=== PATIENT | female | born 1960 | race Caucasian/White ===

== ENCOUNTER → 2017-08-26 | Outpatient (CLI) | payer MEDICARE, OTHER ==
--- NOTE | 2017-08-26 16:06 | US ---
EXAMINATION TYPE: US venous doppler duplex LE RT DATE OF EXAM: 08/26/2017 3:56 PM COMPARISON: NONE CLINICAL HISTORY: Rt Lower Limb Pain M79.604. SIDE PERFORMED: Right TECHNIQUE: The lower extremity deep venous system is examined utilizing real time linear array sonog aruna with graded compression, doppler sonography and color-flow sonography. VESSELS IMAGED: External Iliac Vein (EIV) Common Femoral Vein Deep Femoral Vein Greater Saphenous Vein * Femoral Vein Popliteal Vein Small Saphenous Vein * Proximal Calf Veins (* superficial vessels) Right Leg: Negative for DVT IMPRESSION: 1. No diagnostic evidence of DVT.
== END ==
LOC: RADUSWWP 15:19
PROVIDERS: ATTEND Family Medicine
DX: M79.604 Pain in right leg (principal)

== ENCOUNTER → 2020-03-12 | Outpatient (CLI) | payer MEDICARE, OTHER ==
--- NOTE | 2020-03-12 11:22 | US ---
EXAMINATION TYPE: US pelvic complete DATE OF EXAM: 03/12/2020 COMPARISON: NONE CLINICAL HISTORY: R10.2 pelvic pain. Right pelvic pain x couple months, bloating, post menopausal, gr avida 7, para 4, miscarriage 3, history of uterine CA, history of c-sections and tubal ligation. TECHNIQUE: . Transabdominal sonographic images of the pelvis were acquired. Transvaginal sonographi c images were medically necessary to better assess the following anatomy: endometrium and ovaries Date of LMP: 2008 EXAM MEASUREMENTS: Uterus: 6.2 x 3.6 x 4.2 cm Endometrial Stripe: 0.4 cm Right Ovary: not seen Left Ovary: not seen 1. Uterus: anteverted, heterogeneous 2. Endometrium: wnl 3. Right Ovary: not seen due to overlying bowel 4. Left Ovary: not seen due to overlying bowel 5. Bilateral Adnexa: wnl 6. Posterior cul-de-sac: wnl IMPRESSION: No concerning adnexal masses. Uterus felt within normal limits seen best on transvaginal imaging.
== END | disposition home or self-care (01) ==
LOC: RADUSWWP 10:42
PROVIDERS: ATTEND Family Medicine
DX: R10.2 Pelvic and perineal pain (principal)
CPT/HCPCS: 76830; 76856

== ENCOUNTER → 2020-06-04 | Outpatient (CLI) | payer MEDICARE, OTHER ==
[2020-06-04 11:37] LABS: African American GFR (CKD) >90 (>60 ml/min/1.73 sqM); Blood Urea Nitrogen 12 mg/dL (7-17); Non-African American GFR(CKD) >90 (>60 ml/min/1.73 sqM)
--- NOTE | 2020-06-04 14:27 | CT ---
EXAMINATION TYPE: CT ChestAbdPelvis w con DATE OF EXAM: 06/04/2020 COMPARISON: Limited abdominal ultrasound 02/19/2010. Pelvic ultrasound 03/12/2020. HISTORY: Lung nodule and Right sided Abdominal pain CT DLP: 1246 mGycm Automated exposure control for dose reduction was used. CONTRAST: CT scan of the chest, abdomen and pelvis is performed with Oral Contrast and with IV Contrast, patien t injected with 100 mL of Isovue 300. FINDINGS: LUNGS: The lungs are grossly clear, there is no concerning parenchymal mass or nodule identified. Mil d biapical pleural scarring. There is no pleural effusion or pneumothorax seen. The tracheobronchia l tree is patent. MEDIASTINUM: There are no greater than 1 cm hilar or mediastinal lymph nodes. Calcific coronary arter y disease. No pericardial effusion is seen. Cardiac size normal. No thoracic aortic aneurysm. OTHER: No additional significant abnormality is seen. LIVER/GB: Scattered hepatic cysts and too small to characterize hypodense lesions. There is hypodensi ty adjacent to the central hilum measuring approximately 3.4 x 1.3 x 2.6 cm. No evidence of biliary d uctal dilatation. Gallbladder normal. PANCREAS: No main pancreatic ductal dilatation. SPLEEN: Normal. ADRENALS: Normal. KIDNEYS: Normal. BOWEL: Normal. PELVIC: Uterus and adnexa normal. Underdistended urinary bladder. LYMPH NODES: No lymphadenopathy. VASCULATURE: No abdominal aortic aneurysm. Calcified and noncalcified atherosclerotic disease. PERITONEUM: Normal. OSSEOUS STRUCTURES: No acute osseous anomaly. IMPRESSION: 1. Hepatic 3.4 cm hypodense area in the region of the hilum/gallbladder fossa. Area was seen on 2009 ultrasound comparison and most likely represents unchanged focal fatty infiltration. 2. No acute thoracic or abdominopelvic findings to explain patient's abdominal pain.
== END | disposition home or self-care (01) ==
LOC: RADCTMAIN 10:52
PROVIDERS: ATTEND Family Medicine
DX: R91.1 Solitary pulmonary nodule (principal); R10.31 Right lower quadrant pain; K76.89 Other specified diseases of liver
CPT/HCPCS: 82565; 84520; 71260; 74177; 36415; Q9967

== ENCOUNTER → 2022-05-11 | Outpatient (CLI) | payer MEDICARE, OTHER ==
[2022-05-11 10:46] LABS: Basophils # (A) 0.06 X 10*3/uL (0.00-0.10); Eosinophils # (A) 0.16 X 10*3/uL (0.04-0.35); Eosinophils % (A) 2.8 %; HCT 39.7 % (37.2-46.3); HGB 12.1 g/dL (12.0-15.0); Immature Grans, Automated 0.2 %; Lymphocytes # (A) 1.89 X 10*3/uL (0.90-5.00); Lymphocytes % (A) 32.9 %; MCH 26.9 pg (27.0-32.0); MCHC 30.5 g/dL (32.0-37.0); MCV 88.2 fL (80.0-97.0); Mean Platelet Volume 10.3 fL (9.5-12.2); Monocytes # (A) 0.73 X 10*3/uL (0.20-1.00); Monocytes % (A) 12.7 %; NRBC Per 100 WBC 0 /100 WBCS (0.0-0.0); Neutrophils # (A) 2.89 X 10*3/uL (1.80-7.70); Neutrophils % (A) 50.4 %; Platelet Count 344 X 10*3/uL (140-440); RDW 13.3 % (11.5-14.5); WBC 5.74 X 10*3/uL (4.50-10.00)
[2022-05-11 10:51] LABS: Anion Gap 10.7 mmol/L (10.00-18.00); Carbon Dioxide 29.3 mmol/L (20.0-27.5); Potassium 4.6 mmol/L (3.5-5.5)
== END | disposition home or self-care (01) ==
LOC: LABPAT 07:57
PROVIDERS: ATTEND Orthopaedic Surgery
DX: Z01.812 Encounter for preprocedural laboratory examination (principal); M75.42 Impingement syndrome of left shoulder
CPT/HCPCS: 80051; 85025; 93005

== ENCOUNTER 2022-05-26 08:43 | Day surgery (SDC) | payer MEDICARE, OTHER ==
--- NOTE | 2022-05-25 14:14 | HP ---
HISTORY AND PHYSICAL REASON FOR ADMISSION: Surgery 05/26/2022 HISTORY OF PRESENT ILLNESS: Cristina Hayes is a 61-year-old patient seen with progressive left shoulder pain. We discussed options for treatment. She elected to proceed with left shoulder arthroscopy. Consent obtained. PAST MEDICAL HISTORY: Past medical history is [id number] diabetes. PAST SURGICAL HISTORY: Appendectomy, knee arthroscopy, section. MEDICATIONS: Metformin, Glimepiride. ALLERGIES: CODEINE. SOCIAL HISTORY: She denies tobacco use. PHYSICAL EVALUATION OF THE LEFT SHOULDER: Flexion is 90 degrees, abduction 70 degrees. External rotation is 40 degrees with pain and weakness. Tenderness along the anterolateral acromion rotator cuff insertion. Impingement positive 70 degrees. Cross-body adduction sign is positive. Drop-arm sign is positive. Distal neurovascular exam is intact. RADIOGRAPHS: Left shoulder radiographs revealed type 2 acromion, acromioclavicular joint osteoarthritis. MRI left shoulder partial rotator cuff tendon tear. IMPRESSION: 1. Left shoulder impingement with partial rotator cuff tear. 2. Left shoulder acromioclavicular joint osteoarthritis. 3. [id number] diabetes. PLAN: Left shoulder arthroscopy, subacromial decompression, possible arthroscopic rotator cuff repair, Corin procedure and debridement. Surgery 05/26/2022. MMODL / IJN: [id number] /
[~2022-05-26 08:43] MED LIST: DEXAMETHASONE SOD PHOSPHATE 4 MG/ML 1 ML VIAL IV ONE; HYDROmorphone 0.5 MG/0.5 ML SYRINGE IVP PRN; LACTATED RINGERS 1,000 ML IV SCH; ONDANSETRON 4 MG/2 ML VIAL IVP ONE
[2022-05-26 09:32] LABS: Glucose,Whole Blood 153 mg/dL (70-110)
[2022-05-26] MEDS ORDERED: MIDAZOLAM 2 MG/2 ML VIAL IVP ONE (10:09)
--- NOTE | 2022-05-26 10:11 | P.ANPRN ---
Procedure Note - Anesthesia - Nerve Block Performed Left Interscalene Single Time Out Performed: Yes Date of Procedure: 05/26/22 Procedure Start Time: 09:54 Procedure Stop Time: 10:02 Location of Patient: PreOp Indication: Acute Post-Operative Pain, Requested by Surgeon Sedation Type: Sedate with meaningful contact maintained Preparation: Sterile Prep, Sterile Dressing Position: Sitting Catheter: None Needle Types: Pajunk Needle Gauge: 21 Ultrasound used to visualize needle placement: Yes Ultrasound used to observe medication spread: Yes Injectate: 0.5% Ropivacaine (see comment for volume) (30 ml + decadron 4 mg) Blood Aspirated: No Pain Paresthesia on Injection Noted: No Resistance on Injection: Normal Image Stored and Saved: Yes Events: Uneventful and Well Tolerated
[2022-05-26] MEDS ORDERED: ROPIVACAINE 5 MG/ML 30 ML VIAL ONE (10:23)
[2022-05-26] MEDS ORDERED: LIDOCAINE 2% INJ 20 MG/ML (2 ML VIAL) ONE (10:23)
[2022-05-26] MEDS ORDERED: PROPOFOL 10 MG/ML 20 ML VIAL IV ONE (10:23)
[2022-05-26] MEDS ORDERED: SUCCINYLCHOLINE CHLORIDE VIAL 200 MG/10 ML VIAL IV ONE (10:23)
[2022-05-26] MEDS ORDERED: DEXAMETHASONE SOD PHOSPHATE 4 MG/ML 1 ML VIAL ONE (10:23)
--- NOTE | 2022-05-26 12:09 | P.OP ---
Date of Procedure: 05/26/22 Preoperative Diagnosis: Left shoulder impingement Postoperative Diagnosis: 1. Left shoulder rotator cuff tear 2. Left shoulder impingement 3. Left shoulder acromioclavicular joint osteoarthritis Procedure(s) Performed: 1. Left shoulder arthroscopic rotator cuff repair 2. Left shoulder arthroscopic subacromial decompression 3. Left shoulder arthroscopic Corin procedure Implants: 15.5 Arthrex swivel lock anchor Anesthesia: GETA, regional (Interscalene block) Surgeon: Nehemias Montaño Phone Technician #1: Endy Wright Estimated Blood Loss (ml): 12 Pathology: none sent Condition: stable Disposition: PACU Indications for Procedure: 61-year-old patient seen with progressive left shoulder pain. After treatment options were discussed, she elected to proceed with arthroscopy. Operative Findings: See description of procedure Description of Procedure: Patient underwent an interscalene block by department of anesthesia. The patient was then taken to the operative suite. The patient underwent a general anesthetic by the department of anesthesia. The patient was placed into a lateral position and secured. There was appropriate padding of the bony prominence. Left shoulder was then prepped and draped in normal sterile orthopedic fashion. We placed the extremity in 10 pounds of longitudinal traction. A posterior incision was now made for a posterior working portal site. The trocar and cannula were inserted into the glenohumeral joint. Arthroscopy was initiated. Spinal needle was now inserted anteriorly, to ascertain the anterior working portal site. An incision was now made in that area, a trocar was inserted followed by a probe. There were some grade 1/2 chondral malacia changes of the glenohumeral joint without significant osteochondral tears. The biceps was probed and was found to be stable. The labrum appeared stable. At this point instruments removed from glenohumeral joint. Utilizing the posterior working portal site, the trocar and cannula were inserted into the subacromial space. Arthroscopy initiated. I made an incision 2 fingerbreadths lateral to the acromion. I introduced my trocar followed by my ArthroCare ablator. I now began ablating thick subacromial bursal tissue, which exposed the undersurface of the anterior acromion. There was diminished subacromial space. There was a very prominent anterior acromion. A motorized bur was introduced and a subacromial decompression was performed. I also excised some osteophytes off the inferior aspect of the distal clavicle. The AC joint was visualized and noted to be fairly arthritic. The motorized bur was introduced in the anterior portal site and a Corin procedure was performed without difficulty, decompressing the AC joint nicely. I turned my attention to the rotator cuff. There was an intrasubstance tear measuring approximately 2.5 cm along the central supraspinatus area. There was also a tear along the distal supraspinatus measuring about 1.5 cm. I debrided all the areas of torn tendon getting down to stable tendon tissue. With the assistance of Epi FERRER I repaired the intrasubstance tear with 4 converging sutures. Suture limbs were clipped. That [id number] repair look stable. With the assistance of Epi FERRER now passed 2 everted mattress suture through good bites of rotator cuff tendon along the distal supraspinatus area. I punched on the footprint area for insertion of an anchor. All 4 limbs of suture were passed through the eyelet of a 5.5 Arthrex swivel lock anchor. I placed the eyelet into the prepunched hole. I held it in position while Epi FERRER tensioned all 4 suture limbs and deployed the anchor with good fixation noted. All residual suture limbs were now clipped. We had good compression of the tendon along the entire footprint. Instruments now removed from the portal sites. All portal sites were approximated with nylon suture. Sterile dressings were applied followed by a shoulder sling. Endy FERRER assisted in this complex case. The patient was awakened, transferred to a bed, and taken to recovery in stable condition.
[2022-05-26 12:15] VITALS: TEMP 96.8
[2022-05-26 12:57] LABS: Glucose,Whole Blood 145 mg/dL (70-110)
[2022-05-26 13:46] VITALS: BP 140/81; PULSE 68; RESP 19
== END 2022-05-26 14:15 | disposition home or self-care (01) ==
LOC: OR 08:43
PROVIDERS: ATTEND Orthopaedic Surgery
DX: M75.42 Impingement syndrome of left shoulder (principal); M19.012 Primary osteoarthritis, left shoulder; M75.102 Unspecified rotator cuff tear or rupture of left shoulder, not specified as traumatic; M94.212 Chondromalacia, left shoulder; E11.9 Type 2 diabetes mellitus without complications; G47.33 Obstructive sleep apnea (adult) (pediatric); J44.9 Chronic obstructive pulmonary disease, unspecified; Z79.84 Long term (current) use of oral hypoglycemic drugs; Z79.4 Long term (current) use of insulin; Z79.899 Other long term (current) drug therapy; Z79.82 Long term (current) use of aspirin; Z88.5 Allergy status to narcotic agent; Z90.49 Acquired absence of other specified parts of digestive tract; Z98.891 History of uterine scar from previous surgery; Z98.890 Other specified postprocedural states; Z97.2 Presence of dental prosthetic device (complete) (partial)
CPT/HCPCS: 64415; 76942; 29824; 29827; 29826; C1713; C1894; J2250; J0330; J1100; J0690; J2405; J2795; J2704; J2001

== ENCOUNTER → 2025-02-25 | Outpatient (CLI) | payer MEDICARE, OTHER ==
--- NOTE | 2025-03-02 22:20 | MR ---
EXAMINATION TYPE: MR shoulder RT wo con DATE OF EXAM: 02/25/2025 8:07 PM COMPARISON: Outside right shoulder x-ray February 19, 2025 CLINICAL INDICATION: Female, 64 years old with history of M25.511 PAIN IN RIGHT SHOULDER, Right shoul gricelda pain for 2 months with difficulty raising arm overhead IV Contrast: cc (None if empty) TECHNIQUE: Multiplanar, multisequence imaging of the right shoulder is performed without contrast. FINDINGS: Rotator Cuff: Some increased signal in the infraspinatus tendon with surrounding fluid. More prominen t increased signal in the distal supraspinatus tendon with bursal surface fluid. Heterogeneous but in tact subscapularis tendon. Rotator cuff muscle bulk is preserved. Acromioclavicular Joint: Moderate to severe narrowing with mild to moderate superior capsular hypertr ophy and spurring. Glenohumeral Joint: Narrowing is seen. Small joint effusion. No significant spurring. Labrum: The labrum appears grossly intact given limitation of non-arthrogram study. Biceps Tendon: The long head of biceps is in normal location within bicipital groove. Bone marrow signal: Subchondral cystic change involving the posterior lateral aspect of the humeral h ead. Other: No additional significant abnormality is appreciated. IMPRESSION: 1. Mild tendinosis of the infraspinatus tendon and subscapularis tendon. More prominent tendinosis of the distal supraspinatus tendon. 2. Fairly moderate degenerative changes are seen most prominent at the acromioclavicular joint as det antonio above. [facility], , 03/02/2025 10:18 PM
== END | disposition home or self-care (01) ==
LOC: RADMRIMAIN 19:04
PROVIDERS: ATTEND Orthopaedic Surgery
DX: M67.813 Other specified disorders of tendon, right shoulder (principal); M19.011 Primary osteoarthritis, right shoulder